=== PATIENT | female | born 1975 | race Caucasian/White ===

== ENCOUNTER → 2019-11-23 17:19 | Outpatient (CLI) | payer OTHER, SELFPAY ==
--- NOTE | 2019-11-23 | DI.MG.S_ITS ---
BILATERAL DIGITAL SCREENING MAMMOGRAM 3D/2D WITH CAD: 11/23/2019 CLINICAL: Routine screening. Family history of breast cancer. Comparison is made to exams dated: 06/18/2017 mammogram and 05/14/2015 mammogram - [facility]. The tissue of both breasts is heterogeneously dense. This may lower the sensitivity of mammography. Current study was also evaluated with a Computer Aided Detection (CAD) system. No significant masses, calcifications, or other findings are seen in either breast. There has been no significant interval change. IMPRESSION: NEGATIVE There is no mammographic evidence of malignancy. A 1 year screening mammogram is recommended. This exam was interpreted at Station ID: [id number]. NOTE: For mammograms, a report in lay terms will be sent to the patient. Approximately 15% of breast malignancies will not be visualized mammographically. In the management of a palpable breast mass, a negative mammogram must not discourage biopsy of a clinically suspicious lesion. Electronically Signed By: Eloy Escobedo M.D., jr/maria e:11/24/2019 08:31:46 letter sent: Normal Exam ACR BI-RADS Category 1: Negative 3341F
== END ==
PROVIDERS: PCP Family Medicine; Referring Provider Family Medicine; Visit Provider Family Medicine
DX: Z12.31 Encounter for screening mammogram for malignant neoplasm of breast (principal); Z80.3 Family history of malignant neoplasm of breast
CPT/HCPCS: 77063; 77067

== ENCOUNTER → 2019-12-07 07:44 | Outpatient (CLI) | payer OTHER, SELFPAY ==
[2019-12-07 10:20] LABS: Add Manual Diff / Slide Review NO; Alanine Aminotransferase 16 IU/L (<35); Albumin 4.1 g/dL (3.5-5.0); Albumin Globulin Ratio 1.3 (1.0-2.8); Alkaline Phosphatase 69 U/L (38-126); Aspartate Aminotransferase 23 IU/L (14-36); BUN Creatinine Ratio 19.2 (6-22); Basophils Absolute Auto 100 /uL (0-100); Bilirubin Total 0.7 mg/dL (0.2-1.3); Blood Urea Nitrogen 14 mg/dL (7-17); Calcium 8.9 mg/dL (8.4-10.2); Carbon Dioxide 29 mmol/L (22-32); Chloride 107 mmol/L (98-107); Cholesterol 200 mg/dL (140-199); Eosinophils Absolute Auto 200 /uL (0-450); Eosinophils Percent Auto 3.3 % (2-4); Estimated Glomerular Filt Rate > 60.0 mL/min (>60); Globulin 3.1 g/dL (1.7-4.1); Glucose 79 mg/dL (70-100); HDL Cholesterol 47 mg/dL (40-60); HEMOLYSIS < 15 (0-50); Hematocrit 41.5 % (36-46); Hemoglobin 14.2 g/dL (12.0-16.0); LDL Cholesterol Calculated 133 mg/dL (<100); Lymphocytes Absolute Auto 1600 /uL (1100-4500); Mean Corpuscular HGB Conc 34.2 % (30-36); Mean Corpuscular Hemoglobin 30.6 PG (26-34); Mean Corpuscular Volume 89.7 fL (80-100); Monocytes Absolute Auto 400 /uL (0-900); Monocytes Percent Auto 7.1 % (3-14); Neutrophils Absolute Auto 3300 /uL (1500-7000); Neutrophils Percent Auto 59.6 % (50-75); Platelet Count 288 X10^3/uL (150-400); Potassium 4.3 mmol/L (3.4-5.1); Red Blood Cell Count 4.63 X10^6/uL (4.0-5.2); Red Cell Distribution Width 13.1 % (11.6-14.8); Sodium 140 mmol/L (137-145); Total Protein 7.2 g/dL (6.3-8.2); Triglycerides 101 mg/dL (35-150); White Blood Cell Count 5.6 X10^3/uL (4.5-11.0)
[2019-12-07 10:24] LABS: Hemoglobin A1C% w Est Avg Glu 4.8 % (4.0-6.0)
== END ==
PROVIDERS: PCP Family Medicine; Referring Provider Family Medicine; Visit Provider Family Medicine
DX: Z00.00 Encounter for general adult medical examination without abnormal findings (principal); Z13.1 Encounter for screening for diabetes mellitus; Z13.6 Encounter for screening for cardiovascular disorders
CPT/HCPCS: 36415; 80053; 80061; 83036; 85025

== ENCOUNTER → 2021-08-20 15:38 | Outpatient (CLI) | payer OTHER, SELFPAY ==
--- NOTE | 2021-08-20 15:40 | DI.RAD.S_ITS ---
PROCEDURE: XR FOOT RT MIN 3V INDICATIONS: R foot pain due to injury one week ago TECHNIQUE: 3 views of the foot were acquired. COMPARISON: None. FINDINGS: Bones: No fractures or dislocations. No suspicious bony lesions. Soft tissues: No tibiotalar joint effusion. Achilles tendon appears normal. There is mild focal swelling along the dorsum of the mid metatarsals. No visible soft tissue foreign body. IMPRESSION: 1. Mild dorsal foot swelling without underlying fracture or foreign body. Dictated by: Ember Yo M.D. on 08/20/2021 at 17:31 Approved by: Ember Yo M.D. on 08/20/2021 at 17:33
== END ==
PROVIDERS: PCP Family Medicine; Referring Provider Physician Assistant; Visit Provider Physician Assistant
DX: M79.671 Pain in right foot (principal)
CPT/HCPCS: 73630

== ENCOUNTER → 2022-04-20 07:47 | Outpatient (CLI) | payer OTHER, SELFPAY ==
--- NOTE | 2022-04-20 | DI.MG.S_ITS ---
BILATERAL DIGITAL SCREENING MAMMOGRAM 3D/2D WITH CAD: 04/20/2022 CLINICAL: Routine screening. Family history of breast cancer. Comparison is made to exams dated: 11/23/2019 mammogram, 06/18/2017 mammogram, and 05/14/2015 mammogram - [facility]. There are scattered areas of fibroglandular density in both breasts (category b / 25%-50% glandular tissue). Current study was also evaluated with a Computer Aided Detection (CAD) system. No significant masses, calcifications, or other findings are seen in either breast. There has been no significant interval change. IMPRESSION: NEGATIVE There is no mammographic evidence of malignancy. A 1 year screening mammogram is recommended. Based on the Tyrer Cuzick model (a risk assessment model) the patient's lifetime risk is 9.7% and her 10 year risk is 2.0%. According to the ACR, ACS, and NCCN guidelines, an annual breast MRI exam along with mammogram is recommended if the patient's lifetime risk is 20% or greater. This exam was interpreted at Station ID: [id number]. NOTE: For mammograms, a report in lay terms will be sent to the patient. Approximately 15% of breast malignancies will not be visualized mammographically. In the management of a palpable breast mass, a negative mammogram must not discourage biopsy of a clinically suspicious lesion. Electronically Signed By: Que tinajero/maria e:04/20/2022 10:07:23 letter sent: Normal Exam ACR BI-RADS Category 1: Negative 3341F
== END ==
PROVIDERS: PCP Family Medicine; Referring Provider Family Medicine; Visit Provider Family Medicine
DX: Z12.31 Encounter for screening mammogram for malignant neoplasm of breast (principal); Z80.3 Family history of malignant neoplasm of breast
CPT/HCPCS: 77063; 77067

== ENCOUNTER → 2023-02-13 09:01 | Outpatient (CLI) | payer OTHER, SELFPAY ==
--- NOTE | 2023-02-13 09:04 | DI.RAD.S_ITS ---
PROCEDURE: XR SHOULDER LT MIN 2V INDICATIONS: Left shoulder injury TECHNIQUE: 3 views of the shoulder were acquired. COMPARISON: None. FINDINGS: Bones: No fractures or dislocations. No suspicious bony lesions. Visualized ribs appear intact. Soft tissues: No suspicious soft tissue calcifications. IMPRESSION: No acute bony abnormality. Dictated by: Kalpesh Canales M.D. on 02/13/2023 at 9:32 Approved by: Kalpesh Canales M.D. on 02/13/2023 at 9:33
== END ==
PROVIDERS: PCP Family Medicine; Referring Provider Nurse Practitioner Family; Visit Provider Nurse Practitioner Family
DX: S46.912A Strain of unspecified muscle, fascia and tendon at shoulder and upper arm level, left arm, initial encounter (principal); X58.XXXA Exposure to other specified factors, initial encounter
CPT/HCPCS: 73030

== ENCOUNTER → 2023-09-15 07:53 | Outpatient (CLI) | payer OTHER, SELFPAY ==
--- NOTE | 2023-09-15 07:54 | DI.MG.S_ITS ---
BILATERAL DIGITAL SCREENING MAMMOGRAM 3D/2D WITH CAD: 09/15/2023 CLINICAL: Routine screening. Family history of breast cancer. Comparison is made to exams dated: 04/20/2022 mammogram, 11/23/2019 mammogram, and 06/18/2017 mammogram - [facility]. There are scattered areas of fibroglandular density in both breasts (category b / 25%-50% glandular tissue). Current study was also evaluated with a Computer Aided Detection (CAD) system. No significant masses, calcifications, or other findings are seen in either breast. There has been no significant interval change. IMPRESSION: NEGATIVE There is no mammographic evidence of malignancy. A 1 year screening mammogram is recommended. Based on the Tyrer Cuzick model (a risk assessment model) the patient's lifetime risk is 15.4% and her 10 year risk is 3.3%. According to the ACR, ACS, and NCCN guidelines, an annual breast MRI exam along with mammogram is recommended if the patient's lifetime risk is 20% or greater. This exam was interpreted at Station ID: [id number]. NOTE: For mammograms, a report in lay terms will be sent to the patient. Approximately 15% of breast malignancies will not be visualized mammographically. In the management of a palpable breast mass, a negative mammogram must not discourage biopsy of a clinically suspicious lesion. Electronically Signed By: Que tinajero/maria e:09/15/2023 12:44:55 letter sent: Normal Exam ACR BI-RADS Category 1: Negative 3341F
== END ==
PROVIDERS: PCP Family Medicine; Referring Provider Family Medicine; Visit Provider Family Medicine
DX: Z12.31 Encounter for screening mammogram for malignant neoplasm of breast (principal); Z80.3 Family history of malignant neoplasm of breast; R92.323 Mammographic fibroglandular density, bilateral breasts
CPT/HCPCS: 77063; 77067

== ENCOUNTER 2024-01-07 07:02 | Day surgery (SDC) | payer OTHER, SELFPAY ==
--- NOTE | 2024-01-07 | PATH_ITS ---
[facility] Accession Number: [id number] No. of containers..02 Tissue . 01 Material submitted: . PART A: colon - CECUM PART B: small bowel - TI . 01 Diagnosis: A. CECUM, BIOPSY Colonic mucosa with prominent benign lymphoid aaggregate. Negative for active for microscopic colitis. Negative for granulomas, dysplasia, or malignancy. . B. TERMINAL ILEUM, BIOPSY: Ileal mucosa with no diagnostic abgnormality. Negative for active inflammation, granulomas, dysplasia, or malignancy. [facility] 01/10/2024 1044 Local . 01 Electronically signed: . Richard Eng MD, PhD, Pathologist NPI- [id number] . 01 Gross description: . A. Received in formalin, labeled with two patient identifiers and designated 1. Cecum, and consists of two corrales-brown, irregular soft tissues averaging 0.2 cm in greatest dimension, which are entirely submitted in cassette A1. B. Received in formalin, labeled with two patient identifiers and designated 2. TI, and consists of two corrales-brown, irregular soft tissues averaging 0.2 cm in greatest dimension, which are entirely submitted in cassette B1. ([id number]) /FRR 01/08/2024 1401 Local . 01 Pathologist provided ICD-10: Z12.11, K63.5 . 01 CPT . 507411, [id number] Specimen Comment: A courtesy copy of this report has been sent to [facility] Pathology Performed at: [address] [id number] MD Satinder Martinez MD Phone: [phone]
[2024-01-07 07:19] VITALS: BP 133/87; PULSE 96; RESP 18; TEMP 36.5; O2SAT 97
--- NOTE | 2024-01-07 07:29 | P.HP_ITS ---
History of Present Illness History of Present Illness Date Patient Seen: 01/07/24 Time Patient Seen: 07:29 Chief complaint: [facility] Narrative: This is a 48-year-old white female, healthy, presents for initial screening colonoscopy. She denies any changes in bowel habits, but notes she has had soft bowel movements for her entire life. She has no family history of colon cancer Crohn's disease or ulcerative colitis. She denies any bleeding or unexplained weight loss. [facility] Social History marital status: Smoking Status: Never smoker alcohol intake: never substance use type: does not use Meds Home Medications and Allergies Home Medications Medication Instructions Recorded Confirmed Type sodium,potassium,mag sulfates 17.5 See Rx Instructions PO .COMPLEX 01/03/24 Rx gram-3.13 gram-1.6 gram oral soln #354 mL (Suprep Bowel Prep Kit) Allergies Allergy/AdvReac Type Severity Reaction Status Date / Time CLONAZEPAM Allergy Severe PASSED OUT Uncoded 05/16/23 12:06 Review of Systems Review of Systems ROS: Yes All systems reviewed with the patient and are negative except as otherwise documented Constitutional Constitutional: Denies fatigue, Denies increased appetite and Denies weight loss Eyes Eyes: Reports system reviewed and no additional complaints, except as documented ENT Ears, Nose, Mouth, and Throat: Yes system reviewed and no additional complaints, except as documented Cardiovascular Cardiovascular: Reports system reviewed and no additional complaints, except as documented Respiratory Respiratory: Reports system reviewed and no additional complaints, except as documented Gastrointestinal Gastrointestinal: Reports system reviewed and no additional complaints, except as documented, Denies abdominal pain, Denies melena, Denies bloating, Denies hematochezia, Denies change in bowel habits, Denies change in stool character, Denies constipation and Reports loose stools ( Soft stools for her entire life) Genitourinary Genitourinary: Reports system reviewed and no additional complaints, except as documented Musculoskeletal Musculoskeletal: Reports system reviewed and no additional complaints, except as documented Integumentary/Breasts Skin/Breast: Reports system reviewed and no additional complaints, except as documented Neurologic Neurologic: Reports system reviewed and no additional complaints, except as documented Psychiatric Psychiatric: Reports system reviewed and no additional complaints, except as documented Endocrine Endocrine: Reports system reviewed and no additional complaints, except as documented and Denies fatigue Hematologic/Lymphatic Hematologic/Lymphatic: Reports system reviewed and no additional complaints, except as documented Allergic/Immunologic Allergic/Immunologic: Reports system reviewed and no additional complaints, except as documented Exam Vital Signs (past 8 hours): - 01/07/24 07:19 Temperature 97.7 F Pulse Rate 96 H Respiratory Rate 18 Blood Pressure 133/87 Pulse Oximetry 97 Oxygen Delivery Method Room Air Oxygen Delivery Method Room Air Const General: cooperative, healthy appearing, comfortable, well developed, well groomed and No acute distress Orientation: alert, awake and oriented x3 HENMT Head: normal to inspection Nose: external nose normal Mouth: oral mucosae normal, tongue normal and moist mucous membranes Eyes General: appearance normal, both eyes and all related structures EOM: EOM intact bilaterally Neck Neck: normal visual inspection and full ROM Chest Chest: normal inspection of the chest Resp Effort & Inspection: normal respiratory effort, able to speak in complete sentences, normal respiratory pattern and no audible wheezes Cardio Rate: regular rate Rhythm: regular rhythm GI Palpation: soft, no hepatosplenomegaly, No tender and No ascites Other: deferred to endoscopy note Back/Spine/Pelvis Back: normal to inspection Cervical Spine: normal cervical lordosis Thoracic/Lumbar Spine: thoracic and lumbar spine normal to inspection Skin General: no rashes or lesions noted Neuro General: patient alert, patient awake and patient oriented x3 Extrem General: normal to inspection and full ROM Psych Appearance: grossly normal and well kempt Mental Status: mental status grossly normal Speech and Movement: speech and movement normal Mood: congruent mood Affect: normal affect Attitude: cooperative Assessment & Plan Assessment & Plan narrative: patient presents for initial screening colonoscopy risks, benefits, alternatives to colonoscopy explained, including but not limited to bowel perforation or other serious complication requiring surgery at less than 1 in 5000 colonoscopies, abdominal pain, cramping or bleeding and less than 1% of colonoscopies, and the chances that we find a diagnosis that would require further intervention of about 2%. Patient agrees to proceed. Time-Based Coding :: [TOTAL MINUTES] spent with patient and on the chart (including review of chart, obtaining history, exam, reviewing outside data, placing orders, documenting exam and treatment plan, and counseling patient) on [DATE].
--- NOTE | 2024-01-07 08:19 | PM.OP.COLON ---
Operative Date/Time/Diagnoses Date of procedure: 01/07/24 Time of procedure: 08:19 Pre-op diagnosis: colon cancer screening, normal risk Post-op diagnosis: other (rule out colitis) Procedure & Clinicians Study performed: Colonoscopy with cold forceps biopsy of the terminal ileum and cecum Same procedure as scheduled: Yes Indications: colon screening Surgeon: Forest Nolan Procedure Notes SCOAP/Timeout: performed Procedure in detail: time-out was performed. Mac was induced. Patient was placed in left lateral decubitus position. The perineum was inspected without any gross abnormality. Lubricated pediatric colonoscope was inserted and advanced to the cecum. There was some mucosal abnormality of the cecum consistent with segmental colitis, with light red petechiae. cold forceps biopsy x2 was obtained of the cecum.The terminal ileum was intubated, Found to be grossly normal, Cold forcepsbiopsies x2were obtained due to history of soft bowel movements. The colonoscope was withdrawn slowly inspecting the circumference of the colon. Very small polyps may have been missed, prep quality was adequate. Retroflexed view of the rectum showed small, non prolapsed nonbleeding internal hemorrhoids. The scope was withdrawn the patient was taken to PACU in good condition. Scope withdrawal time: 9 Sedation minutes: 18 Findings: colitis Specimen(s): other (1. cold forceps biopsy cecum 2. cold forceps biopsy terminal ileum) Complications: none Impression: normal colon screening. Await pathology Post-procedure Recommendations: Colonoscopy in 10 years Plan for aftercare: follow-up with your primary care doctor as previously scheduled Follow up: as needed Disposition: PACU
[2024-01-07 08:22] VITALS: BP 106/65; PULSE 76; RESP 16; TEMP 36.4; O2SAT 99
[2024-01-07 08:31] VITALS: BP 112/70; PULSE 86; RESP 19; TEMP 36.2; O2SAT 99
[2024-01-07 08:32] VITALS: BP 114/67; PULSE 80; RESP 16; TEMP 36.2; O2SAT 98
== END 2024-01-07 08:45 | disposition home or self-care (01) ==
PROVIDERS: PCP Family Medicine; Referring Provider Surgery; Visit Provider Surgery
PROC: 0DJD8ZZ Inspection of Lower Intestinal Tract, Via Natural or Artificial Opening Endoscopic (ICD-10-PCS; CPT 45378; principal; 2024-01-07 08:00)
DX: Z12.11 Encounter for screening for malignant neoplasm of colon (principal); K64.8 Other hemorrhoids
CPT/HCPCS: 45380; J2704

== ENCOUNTER → 2024-11-18 07:50 | Outpatient (CLI) | payer OTHER, SELFPAY ==
--- NOTE | 2024-11-18 07:52 | DI.MG.S_ITS ---
MM screening mammo BI: 11/18/2024. BI-RADS: 1 CLINICAL: 49-year old female for bilateral screening mammogram. Tyrer-Cuzick lifetime risk of 16.4%. Current reported family history of breast cancer: maternal grandmother, sister and paternal aunt. PRIOR EXAMS 09/15/2023, 04/20/2022, 11/23/2019, 06/18/2017. MAMMOGRAPHY TECHNIQUE: 2D and 3D (tomosynthesis) digital mammographic views obtained, with additional images as needed for full coverage. Current study was also evaluated with a Computer Aided Detection (CAD) system. DENSITY B. There are scattered areas of fibroglandular density. MAMMOGRAPHY FINDINGS Bilateral: No suspicious mass, asymmetry, microcalcification, or other abnormality seen. IMPRESSION: * No evidence of malignancy. RECOMMENDATIONS Bilateral * Annual screening mammography. OVERALL ASSESSMENT CATEGORY BI-RADS-1: Negative. The [employer] recommends annual screening mammography beginning at age 40 for women with average risk of breast cancer. ELECTRONICALLY SIGNED: Carie Sprague M.D. on 11/20/2024 at 10:50:51 PM PT Interpreting Station ID: [id number]
== END ==
PROVIDERS: PCP Family Medicine; Referring Provider Family Medicine; Visit Provider Family Medicine
DX: Z12.31 Encounter for screening mammogram for malignant neoplasm of breast (principal); Z80.3 Family history of malignant neoplasm of breast
CPT/HCPCS: 77063; 77067